=== PATIENT | male | born 2000 | race American Indian/Alaskan Native ===

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

== ENCOUNTER 2020-10-08 12:35 | Emergency (ER) | payer OTHER ==
[2020-10-08 12:49] VITALS: BP 137/84
--- NOTE | 2020-10-08 13:14 | Emergency Department Report ---
Chief Complaint: Urogenital-Male Stated Complaint: BLOOD IN URINE Time Seen by Provider: 10/08/20 13:04 - HPI History of Present Illness: Patient is a 20-year-old male who presents emergency room with complaints of dysuria that began a couple days ago. He has associated yellow penile discharge. He denies any fever, nausea, vomiting, diarrhea, abdominal pain, back pain, pain or swelling in the testicles. He states he was sexually active abduction. No past medical history. No allergies medications. Vitals are stable On exam: Non toxic appearing, no acute distress atraumatic, normocephalic normal appearance of the eyes, EOMI, no periorbital edema or ecchymosis moist mucus membranes No respiratory distress, no excessive muscle use Abdomen is soft, nondistended, nontender, no guarding, no rebound, no rigidity exam: Lab Clerk: kathe Fernández, there are small inguinal lymphadenopathies bilaterally, no erythema, no signs of any hernias, no testicular or epididymal tenderness to palpation bilaterally, no scrotal edema, no obvious lesions, normal testicular lie, normal cremasteric reflex, there is a small amount of yellow penile discharge at the urethral opening, no signs of balanitis A&O x4, no focal neuro deficit skin is warm, dry, intact Patient is presenting with symptoms most consistent with uncomplicated male STD Patient be referred to health department and a clinic in order to receive full STD panel testing and treatment as appropriate Discussed strict return precautions Discussed the importance of follow-up Patient given the appropriate resources Medical screen examination performed there is no threat to life or limb at this time - Exam Vital Signs: Vital Signs 10/08/20 12:45 Temperature 98.3 F Pulse Rate 66 Respiratory 20 Rate Blood Pressure 137/84 O2 Sat by Pulse 100 Oximetry MSE screening note: Focused history and physical exam performed. Due to findings the following was ordered: ED Disposition for MSE Clinical Impression: Concern about STD in male without diagnosis Disposition: Z-07 MED SCREENING EXAM-LEFT Is pt being admited?: No Does the pt Need Aspirin: No Condition: Stable Instructions: Safe Sex Additional Instructions: Please follow-up with the clinic or the health department in order to receive a full STD panel. Please have any partner tested and treated as well. Avoid sexual intercourse. Return to emergency room for new or worsening symptoms. walk in clinic: [facility] Address: [address] [place] [id number] Referrals: PRIMARY CARE, [Primary Care Provider] - 2-3 Days [facility] [Outside] - 2-3 Days [facility] [Provider Group] - 2-3 Days Time of Disposition: 13:13 Print Language: MALTESE
== END 2020-10-08 13:17 | disposition left against medical advice (07) ==
LOC: ED 12:35
DX: R30.0 Dysuria (principal); R36.9 Urethral discharge, unspecified; Z53.21 Procedure and treatment not carried out due to patient leaving prior to being seen by health care provider